=== PATIENT | female | born 1945 | race Caucasian/White ===

== ENCOUNTER 2017-03-18 08:52 | Emergency (ER) | payer MEDICARE, BC ==
--- NOTE | 2017-03-21 12:41 | ER ---
ADMIT: 03/18/2017 RM/LOC: ER [facility] MR#: [id number] [address] ROBERT CASTREJON [address] [place] [address] Emergency Room Report SEX: F AGE: 71 : 1945 DATE: 03/18/2017 HISTORY OF PRESENT ILLNESS: The patient is a 71-year-old female, who presents to the emergency room complaining of right-sided back pain, middle of the buttocks, radiating to the front of the leg in the knee area, continues in the ER, but it started 7 days ago. She says she went in to get a shot, an injection for her right knee which gave her some relief right at that area, but the continuous discomfort in the back does not allow her to ambulate properly. She did say she had several trips that were kind of long distance and that messed things up and made it worse for her. She is heavyset lady and it is pretty tough for her to get comfortable. PAST MEDICAL HISTORY: Anxiety and osteoarthritis. PAST SURGICAL HISTORY: Does not report any surgeries. MEDICATIONS: Include the typical rheumatoid arthritis medication. She does take; 1. Prozac. 2. Potassium chloride. 3. Hydrochlorothiazide. 4. Trazodone. 5. Verapamil. 6. Xanax. 7. Nabumetone. 8. [place]-3. 9. Flaxseed oral. 10.CoQ10. 11.Caltrate. 12.Centrum. 13.Niacin. 14.Acetaminophen. 15.Lortab. SOCIAL HISTORY: Denies smoking, drinking, drugs, or alcohol. REVIEW OF SYSTEMS: Otherwise negative. She denies having any incontinence either to stool or to urine. PHYSICAL EXAMINATION: VITAL SIGNS: On examination, blood pressure 179/81 with a heart rate of 70, respirations 18, temp is 98.9, O2 sats 97%. GENERAL: Alert, moderately anxious. HEENT: Normal inspection. NECK: Supple. RESPIRATIONS: No distress. ADMIT: 03/18/2017 RM/LOC: ER [facility] MR#: [id number] [id number] ROBERT CASTREJON [address] [place] [address] Emergency Room Report SEX: F AGE: 71 : 1945 BACK: There is muscle spasm with tenderness at mid right buttock. NEUROLOGIC: Oriented x4. Mood and affect is flat, and anxious. SKIN: Good color. EXTREMITIES: No extremity edema. Unable to do perform a full range of motion due to her habitus. She was given Nubain and Norflex which she said gave her relief instantly. She was sent home per her request with lidocaine patches and prednisone for 5 days. She is supposed to have a trip to [place] and she was requesting a note, but I advised her to follow up with Dr. Lujan for something like that. Diagnosed at this time with right sciatica, lumbar strain. Discharged with followup instructions. NAWAF Gabriel / Cesar Rae MD / modl JOB #: [id number] CC: Cesar Rae MD, Attending Physician Edy Lujan MD, Family Physician
== END 2017-03-18 10:55 | disposition home or self-care (01) ==
LOC: ER 08:52
DX: S39.012A Strain of muscle, fascia and tendon of lower back, initial encounter (principal); I10 Essential (primary) hypertension; F41.9 Anxiety disorder, unspecified; M54.41 Lumbago with sciatica, right side; Z88.0 Allergy status to penicillin; Z79.899 Other long term (current) drug therapy; X58.XXXA Exposure to other specified factors, initial encounter